=== PATIENT | female | born 1955 | race African-American/Black ===

== ENCOUNTER 2022-09-30 02:27 | Emergency (ER) | payer MEDICAID, OTHER ==
[~2022-09-30] VITALS: Ht 170.2 cm; Wt 86.2 kg
--- NOTE | 2022-09-30 02:50 | NUR ---
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 PATIENT IS A/OX4, NO RESPIRATORY DISTRESS NOTED ABD SOFT NON-TENDER TO PALPATION, INFORMED OF PLAN OF CARE, AWAITING MD EXAM. SIDE RAILS UP. 147/97-83-18-99% ROOM AIR.
[2022-09-30 03:41] LABS: HEMATOCRIT 43.1 % (31.2-41.9); MEAN CORPUSCULAR VOLUME 81.8 fL (75.5-95.3); PLATELET COUNT (AUTO) 210 K/uL (179-408)
--- NOTE | 2022-09-30 03:42 | NUR ---
operating room surgical technician at bedside.
[2022-09-30 03:45] LABS: MAGNESIUM 2.3 mg/dL (1.8-2.4)
[2022-09-30 03:47] LABS: CARBON DIOXIDE 29 mmol/L (21-32); CHLORIDE 102 mmol/L (98-107); GLUCOSE 70 mg/dL (74-106); POTASSIUM 3.6 mmol/L (3.5-5.1); UREA NITROGEN, BLOOD 13 mg/dL (7-18)
[2022-09-30 03:59] LABS: THYROID STIMULATING HORMONE 17.57 mIU/mL (0.358-3.740)
[2022-09-30 04:00] LABS: ALANINE AMINOTRANSFERASE 33 U/L (14-59); ALKALINE PHOSPHATASE 121 U/L (50-136); ASPARTATE AMINOTRANSFERASE 33 U/L (15-37); BILIRUBIN,DIRECT 0.1 mg/dL (0.0-0.2); BILIRUBIN,TOTAL 0.2 mg/dL (0.2-1.0); TOTAL PROTEIN, SERUM 8.6 g/dL (6.4-8.2)
--- NOTE | 2022-09-30 04:14 | NUR ---
Ambulated to bathroom, urine collected and sent to lab, placed back on monitor awaiting results. 134/[id number]%
--- NOTE | 2022-09-30 05:20 | NUR ---
son at bedside updated on plan of care.
[2022-09-30] MEDS ORDERED: TEMAZEPAM 15 MG CAPSULE PO PRN (05:30)
[2022-09-30] MEDS ORDERED: HYDROCODONE/APAP 5-325MG TABLET PO PRN (05:30)
[2022-09-30] MEDS ORDERED: MORPHINE SULFATE 2 MG/1 ML DISP.SYRIN IV PRN (05:30)
[2022-09-30] MEDS ORDERED: REMEDY ESSENTIAL ZINC PASTE 113 GM TP PRN (05:30)
[2022-09-30] MEDS ORDERED: ACETAMINOPHEN 325 MG TABLET PO PRN (05:30)
[2022-09-30] MEDS ORDERED: IV NS 1000 ML 1,000 ML IV PRN (05:30)
[2022-09-30] MEDS ORDERED: ONDANSETRON 4 MG/2 ML VIAL IV PRN (05:30)
[2022-09-30] MEDS ORDERED: MAGNESIUM HYDROXIDE 30 ML LIQUID UDC PO PRN (05:30)
--- NOTE | 2022-09-30 05:36 | NUR ---
COVID test done at this time and sent to lab.
[2022-09-30] MEDS ORDERED: HYDROCORTISONE SOD SUCCINATE 100 MG/2 ML VIAL IV ONE ×2 (06:00→06:32)
--- NOTE | 2022-09-30 06:09 | NUR ---
patient aware will be transfering to [facility], Will attempt IV access.
--- NOTE | 2022-09-30 06:18 | NUR ---
PATIENT'S INSURANCE GAVE AMBULANCE AUTHORIZATION # [id number].
--- NOTE | 2022-09-30 06:30 | NUR ---
#22g established in left forearm.
[2022-09-30] MEDS ORDERED: PANTOPRAZOLE SODIUM 40 MG TABLET.DR PO SCH (07:00)
--- NOTE | 2022-09-30 07:18 | NUR ---
Report given to Alex, patient remains stable.
--- NOTE | 2022-09-30 08:00 | NUR ---
RECEIVED PT IN NAD; VSS. DENIES PAIN OR DISCOMFORT AT THIS TIME. PT DECLINED THE 81MG ASPIRIN; STATES SHE TOOK IT THIS AM AROUND 0100. PT IS WAITING FOR ALS AMB. FOR TRANSPORTATION TO [facility] FOR ADMISSION.
[2022-09-30] MEDS ORDERED: PANTOPRAZOLE SODIUM 40 MG TABLET.DR PO ONE (08:48)
[2022-09-30] MEDS ORDERED: ASPIRIN 81 MG TAB.CHEW ONE (08:48)
[2022-09-30] MEDS ORDERED: ASPIRIN 81 MG TAB.CHEW PO SCH (09:00)
--- NOTE | 2022-09-30 09:45 | NUR ---
PT TRANSFERRED TO [facility] ED [facility]. PT IN NAD; ON CARDIAC MONITORING. ALS TRANSPORT AT BEDSIDE. VSS
== END 2022-09-30 09:45 | disposition short-term general hospital (02) ==
LOC: ER 02:27
DX: R00.2 Palpitations (principal); I10 Essential (primary) hypertension; E03.9 Hypothyroidism, unspecified; Z20.822 Contact with and (suspected) exposure to COVID-19
CPT/HCPCS: 99285; 71045; 87426; 80076; 80048; 83880; 84439; 83735; 84443; 85025; 84484; 36415; 93005; J1720; A4663